=== PATIENT | female | born 1980 | race Caucasian/White ===

== ENCOUNTER → 2022-10-16 | Outpatient (CLI) | payer BC ==
[~2022-10-16] MED LIST: ADDERALL XR 3030 MG PO; DIOVAN160 MG PO; HYDROCODON-ACE1 EA12 PO; KETOROLAC PO; LYRICA75 MG PO; METOPROLOL TART50 MG PO; PROZAC40 MG PO; TRAZODONE HCL50 MG PO; ULTRAM 50MG50 MG PO
== END ==
LOC: RAD 16:16
PROVIDERS: ATTEND Neurological Surgery
DX: M50.20 Other cervical disc displacement, unspecified cervical region (principal); M43.22 Fusion of spine, cervical region
CPT/HCPCS: 72050